=== PATIENT | female | born 1980 | race Caucasian/White ===

== ENCOUNTER 2017-04-15 09:17 | Day surgery (SDC) | payer OTHER ==
[~2017-04-15] VITALS: Ht 170.2 cm; Wt 89.1 kg
[2017-04-15] VITALS (9 sets, daily range): BP systolic 107–122; BP diastolic 56–77; PULSE 66–90; RESP 12–20; O2SAT 96–100
[2017-04-15] MEDS: Lactated Ringer's 1,000 ML IV SCH ×4 (05:23→13:38)
[~2017-04-15 09:17] MED LIST: CeFAZolin Inj 2 GM in IV Premix 1 EACH IV ONE; HYDR-4003 PO
[2017-04-15] MEDS ORDERED: MetoCLOpramide 5 mg/mL 2 mL Inj ONE (09:18)
[2017-04-15] MEDS ORDERED: Lidocaine PF 1% 30 mL Inj ONE (09:18)
[2017-04-15] MEDS ORDERED: Propofol 10,000 mCg/mL 20 mL Inj ONE (09:18)
[2017-04-15] MEDS ORDERED: fentaNYL-PF 50 mCg/mL 2 mL Inj ONE (09:18)
[2017-04-15] MEDS ORDERED: Dexamethasone 4 mg/mL Inj ONE (09:18)
[2017-04-15] MEDS ORDERED: EPHEDrine/NS 5 mg/mL 5 mL Syringe ONE (09:18)
[2017-04-15] MEDS ORDERED: Ondansetron 2 mg/mL 2 mL Inj ONE (09:18)
[2017-04-15] MEDS ORDERED: Phenylephrine/NS-PF 100 mCg/mL 5 mL Syringe IVPUSH ONE (09:18)
[2017-04-15] MEDS ORDERED: Lactated Ringer's 1,000 ML IV SCH (11:17)
[2017-04-15] MEDS ORDERED: Lactated Ringer's 500 ML IV PRN (11:17)
--- NOTE | 2017-04-15 11:17 | PCM.HPANE ---
Patient Data Surgeon Admitting Provider: Attending Provider:Ana Amado MD Primary Care Physician:Perla Hoffman Other Provider:Juve Rivero Anesthesia Reason for Visit Left Groin Abcess Ht/WT & BMI Height (Feet): 5 Height (Inches): 7.00 Weight (Kilograms): 89.1 Body Mass Index 30.00 Allergies Coded Allergies: diphenhydramine (Verified Allergy, Unknown, "makes me feel bad- increased restlessness", 04/10/17) Past Anesthesia History Anesthesia History: Denies:: Abnormal Airway, Anesthesia Reactions, Difficult Intubation, Fam Anesthesia Reaction, Malignant Hyperthermia Diabetes History Hx Diabetes?: No MRSA MRSA: No Medications Hypertension Medication: No Home Meds Incl Beta Leena: No Reported Medications Hydrocodone-Acetaminophen 5-325 mg 1 Each Tablet1 Tablet PO Q4H PRN For Pain Ref 0 04/10/17 History History of ENT Problems?: No HEENT History: Denies:: Abnormal Airway Cataracts Difficult Intubation Dysphagia Glaucoma Hearing Problem Sinus Problem TMJ Denture Type: None Teeth Condition: Within Normal Limits Missing Teeth Hx of Heart Problems?: No Cardiovascular History: Denies:: AICD Abdominal Aortic Aneurism Atrial Fibrillation Cardiac Surgery Chest Pain Coronary Artery Disease Edema Heart Murmur Hypertension Irregular Heartbeat Pacemaker Peripheral Vascular Rheumatic Fever Thrombophlebitis Valvular Heart Disease Hx of Respiratory Problem?: No Respiratory History: Denies:: Asthma COPD Emphysema Oxygen Administration Pneumonia Tuberculosis Use of C-PAP Machine Use of Inhalers / NEBS Hx Neurologic Problems?: No Neurological History: Denies:: Alzheimer's Disease CVA Dementia Dizziness Headaches Multiple Sclerosis Parkinson's Disease Seizures TIA Hx of GI Problems?: No Hx of Problems?: No Genitourinary History: Denies:: Kidney Stones Urinary Tract Infection Female Hx: Denies:: Currently Problems with Breasts? Skin History: Positive for:: History Skin Disorders? (left groin abscess current admission problem) Hx Musculoskeletal Problems?: Yes Musculoskeletal History: Positive for:: Back Injury (sees PT for back and neck sciatica ) Denies:: Fibromyalgia Myasthenia Gravis Osteoarthritis Rheumatoid Arthritis Systemic Lupus Hx of Psycho/Social Problems?: No Psycho Social History: Denies:: Anxiety Hx Depression Hx Surgeries?: Yes (c section, repair of traumatic facial lacerations) Hx Any Other Health Problems?: Yes Other History: Denies:: Cancer Thyroid Disease Hx Diabetes: No Hx Alcohol Use: YesAlcoholic Drinks Per Day: couple times monthHx Substance Use: NoHave You Smoked inLast 12 mo: Yes (1/3 pack daily ) Stop/Bang S-Snoring: Do You Snore Loudly: No T-Tired: feel tired, fatigued: No O-Obsered: Observed not breath: No P-Blood Pressure: treated: No B- Body Mass Index > 35 kg/m2: No A- Age over 50: No N- Neck Large Circumference: No G- Gender Male: No GITA Total Score: 0 Risk Assessment Category Category 1A: Patient has history of documented sleep apnea, and HAS NOT received any narcotic, sedative or anesthesia administration during this stay. Category 1B: Patient has history of documented sleep apnea, and HAS received any narcotic , sedative or anesthesia administration during this stay Category 2: Patient has SUSPECTED Obstructive Sleep Apnea, and HAS received any narcotic , sedative or anesthesia administration during this stay. Category 3: Patient has SUSPECTED Obstructive Sleep Apnea and HAS NOT received narcotic, sedative or anesthesia administration during this stay. Category 4: Outpatient in Procedural Areas with known sleep apnea or who screen positive for High Risk via the STOP/BANG questionnaire. Exam Exam Vital Signs Vital Signs Date Time Temp Pulse Resp B/P Pulse Ox O2 Delivery O2 Flow Rate FiO2 04/15/17 10:09 36.3 88 16 111/74 100 Room Air General Appearance: Alert, Oriented X3, Cooperative, No Acute Distress HEENT/AIRWAY: MP 2 Lungs: Clear to Auscultation Heart: Exam Unremarkable Meds/Labs/Diagnostics Admission Meds Current Medications Lactated Ringer's (Lr) 1,000 ml @ 10 mls/hr Q24H IV Last administered on t 05:23; Start 04/15/17 at 05:00; Stop 04/19/17 at 08:59 Plan Impression Patient chart reviewed, patient interviewed and anesthestic plan with risks, benefits, and alternatives discussed, and informed consent obtained. ASA Physical Status: ASA2 Mod Systemic Disease Anesthetic Plan: GA Bene/Risks/Altern/Consents: Yes HP Complete Prior to Induction: Yes Chago Hinojosa MD Apr 15, 2017 11:17
[2017-04-15] MEDS ORDERED: HYDROmorphone 1 mg/mL Inj IVPUSH PRN (11:20)
[2017-04-15] MEDS ORDERED: EPHEDrine Sulfate 50 mg/mL Inj IVPUSH PRN (11:20)
[2017-04-15] MEDS ORDERED: MetoCLOpramide 5 mg/mL 2 mL Inj IVPUSH PRN (11:20)
[2017-04-15] MEDS ORDERED: Dexamethasone 4 mg/mL Inj IVPUSH PRN (11:20)
[2017-04-15] MEDS ORDERED: Phenylephrine 10,000 mCg/mL Inj IVPUSH PRN (11:20)
[2017-04-15] MEDS ORDERED: Ondansetron 2 mg/mL 2 mL Inj IVPUSH PRN (11:20)
[2017-04-15] MEDS ORDERED: Bupivacaine-MPF 0.5% W/EPI 30 mL Inj INFILTRATE ONE (11:45)
[2017-04-15] MEDS ORDERED: oxyCODONE-Acetamin 5-325 mg Tablet PO PRN (12:25)
--- NOTE | 2017-04-15 12:30 | PCM.SURGOP ---
Surgical Operative Report Date of Service: Apr 15, 2017 Pre Operative Diagnosis Left groin infected cyst Post Operative Diagnosis Left groin infected cyst Procedure: Excision of left groin infected cyst, 3 cm x 1 cm Surgeon and Welder 2Nd Shift: Surgeon: Ana Amado MD Assistants: Joy Sanabria MS3 Indication for Procedure This is a 36-year-old woman with a 5-6 year history of repeated infections of a cystic mass most consistent with sebaceous cyst in the left groin. She had a recent need for incision and drainage, and the active infection slowly improved , however, due to the long history of repeated infections, she desired excision of the area. Findings: Chronically infected tissue, removed. Only healthy adipose and skin remained in the wound at the end of the case. There is no active purulence. Procedure Details The patient was brought to the operating room and placed in supine position. General anesthesia was induced. A warming blanket was placed. She was repositioned into frog-leg position. Antibiotics were infused. The operative field was prepped and draped in sterile fashion. A positive was performed to confirm the correct patient, procedure, site, and side. An elliptical excision was performed of the skin overlying the left groin cyst which was in the crease between the left leg and left labia. There appeared to be 2 separate cystic lesions adjacent to one another. They were removed as separate specimens. The first was 3 cm x 1 cm in size, and the second was 1 cm x 1 cm in size. After excision, there was only healthy adipose tissue and skin remaining. This was closed in 2 layers, with a 3-0 interrupted Vicryl stitch used to close subcutaneous tissue, and several interrupted 3-0 nylon stitches used to close skin. Antibiotic ointment and a sterile dressing were placed. The patient was awakened from general anesthesia and taken to postoperative care unit in good condition. Complications There were no periprocedural complications identified. Surgical Specimen Removed: Yes Specimen sent to Pathology: Yes Surgical Specimen description: Left groin sebaceous cyst 2, sent as a single specimen Anesthetic Plan: GA Grafts, Implants: None Output, Estimated Blood Loss: 5 (ml) Blood Administration during morataya: No Ana Amado MD Apr 15, 2017 12:30
[2017-04-15] MEDS: fentaNYL-PF 50 mCg/mL 2 mL Inj IVPUSH PRN ×2 (12:33→12:45)
--- NOTE | 2017-04-15 15:35 | PCM.ANEP1 ---
Post Anesthesia PACU Phase 1 Assessment Vital Signs Vital Signs Date Time Temp Pulse Resp B/P Pulse Ox O2 Delivery O2 Flow Rate FiO2 04/15/17 13:35 82 16 122/77 99 Room Air 04/15/17 12:55 36.7 78 14 115/70 98 Room Air 04/15/17 12:49 36.7 80 14 113/66 98 Room Air 04/15/17 12:46 84 20 113/69 100 Room Air 04/15/17 12:35 77 14 119/74 100 Room Air 04/15/17 12:33 66 12 113/71 100 Room Air 04/15/17 12:28 84 20 110/68 98 Room Air 04/15/17 12:21 36.7 90 16 107/56 96 Room Air 04/15/17 10:09 36.3 88 16 111/74 100 Room Air Anesthetic Administered: GA Level of Alertness: Awake, talking CAVAZOS's with Equal Strength: Yes Pain: No Nausea or Vomiting: No CV Function & Hydration Stable: Yes Airway Device: Oxygen Delivery: Room Air Lungs: Clear to Auscultation Dermatome Level: Full Sensation PACU Phase 2 Assessment Complications: No Patient Instructions Provided: N/A Chago Hinojosa MD Apr 15, 2017 15:35
--- NOTE | 2017-04-24 12:56 | PATH ---
SURGICAL PATHOLOGY Attending Physician:Ana Amado MD CASE STATUS: Signed Out PATIENT NAME: BRETT CARCAMO PID: [id number] : 1980 DATE COLLECTED:04/15/2017 00:00 SPECIMEN: Skin, Cyst CLINICAL HISTORY: 1). LEFT GROIN CYSTIC LESION FINAL DIAGNOSIS: 1.LEFT GROIN CYSTIC LESION, BIOPSY: GRANULATION TISSUE AND SCAR, CONSISTENT WITH RUPTURED EPIDERMAL INCLUSION CYST. ICD10 code L92.9 NOTE: This case has been reviewed by Dr. Lucero, dermatopathologist, who agrees with the interpretation. GROSS DESCRIPTION: Received is one formalin-filled container, labeled with the patient's name and "1. Left groin cystic lesion" consists of two yellow-beige to merida fibrofatty tissue fragments, the first measuring 1.0 x 0.9 x 0.7 cm that is inked blue, bisected. The second fragment measures 2.0 x 1.1 x 0.9 cm, is inked black, bisected. All fragments are totally submitted in one cassette. (DOMINGA:[id number]) MICRO DESCRIPTION: See diagnosis. ICD-9 CODES: CPT CODES: 1: 88644 Electronically Signed Out Katherine Smalls M.D.,[facility] [address], [place] [address] Technical component performed at [facility], [facility] [address], [place], [address]
== END 2017-04-15 23:59 | disposition home or self-care (01) ==
LOC: SAS 09:17
PROVIDERS: ATTEND Surgery
DX: L72.0 Epidermal cyst (principal); L92.9 Granulomatous disorder of the skin and subcutaneous tissue, unspecified; L02.214 Cutaneous abscess of groin; F17.210 Nicotine dependence, cigarettes, uncomplicated
CPT/HCPCS: 11403; J0690; J1100; J1885; J2370; J2405; J2765; J3010; J7120